=== PATIENT | female | born 1960 | race Caucasian/White ===

== ENCOUNTER 2018-01-06 17:01 | Inpatient (IN) | payer OTHER ==
[~2018-01-06] VITALS: Ht 167.6 cm; Wt 96.2 kg
--- NOTE | 2018-01-06 17:20 | NUR ---
PT TO ED RIGHT LOWER ABDOMINAL PAIN - ON AND OFF SINCE SUNDAY. NAD NOTED, VSS, RESP EVEN AND UNLABORED, PT WAS PUT ON MONITOR, WAITING FOR MD LOVE.
[2018-01-06] MEDS ORDERED: ONDANSETRON HCL/PF 4 MG/2 ML VIAL IVP ONE (18:00)
[2018-01-06] MEDS ORDERED: KETOROLAC TROMETHAMINE INJ 30 MG/ML VIAL IV ONE (18:00)
[2018-01-06] MEDS ORDERED: IV NS 0.9% 1,000 ML BAG IV ONE ×2 (18:00→19:00)
[2018-01-06] MEDS ORDERED: ONDANSETRON HCL/PF 4 MG/2 ML VIAL ONE (18:04)
[2018-01-06] MEDS ORDERED: KETOROLAC TROMETHAMINE 15 MG/ML VIAL ONE (18:04)
[2018-01-06 18:26] LABS: BASOPHILS # (AUTO) 0.4 /CMM (0.0-0.2); EOSINOPHILS % (AUTO) 0.4 % (0.0-6.0); HEMATOCRIT 36 % (33-45); HEMOGLOBIN 12.1 g/dL (11.5-14.8); LYMPHOCYTES % (AUTO) 5.5 % (20.0-44.0); MEAN CORPUSCULAR HEMOGLOBIN 33 PG (26.0-33.0); MEAN CORPUSCULAR HGB CONC 34 g/dl (31.0-36.0); MEAN CORPUSCULAR VOLUME 96 fL (82-100); MONOCYTES % (AUTO) 5.7 % (2.0-12.0); NEUTROPHILS # (AUTO) 31.2 /CMM (1.8-8.9); NEUTROPHILS % (AUTO) 87.4 % (43.0-81.0); PLATELET COUNT (AUTO) 632 /CMM (150-450); RDW COEFFICIENT OF VARIATION 12.5 (11.5-15.0)
[2018-01-06 18:28] LABS: WHITE BLOOD COUNT (AUTO) 35.7 K/uL (4.3-11.0)
[2018-01-06 18:37] LABS: CALCIUM, SERUM 8.5 mg/dL (8.5-10.1); CREATININE 0.9 mg/dL (0.6-1.3); POTASSIUM 3.3 mmol/L (3.5-5.1)
[2018-01-06 18:51] LABS: BILIRUBIN,DIRECT 0.1 mg/dL (0.0-0.2); BILIRUBIN,TOTAL 0.4 mg/dL (0.2-1.0); TOTAL PROTEIN, SERUM 6.6 g/dL (6.4-8.2)
--- NOTE | 2018-01-06 19:16 | NUR ---
xray at bs
[2018-01-06] MEDS ORDERED: PIPERACILLIN /TAZOBACTAM 3.375 G VIAL IV ONE ×2 (19:28→23:46)
[2018-01-06] MEDS ORDERED: PIPERACILLIN /TAZOBACTAM 3.375 G in IV D5W 50 ML IV ONE (19:30)
--- NOTE | 2018-01-06 19:38 | NUR ---
pt unable to give urine sample at this moment.
--- NOTE | 2018-01-06 19:56 | NUR ---
PATIENT ASSIGNED TO MS 206-1 DX ABD PAIN ACCEPTED BY SUSANNA
[2018-01-06] MEDS ORDERED: HYDROCODONE/APAP 5/325MG 1 EACH TABLET PO PRN (20:30)
[2018-01-06] MEDS ORDERED: Z GUARD REMEDY 2 OZ OINT TP PRN (20:30)
[2018-01-06] MEDS ORDERED: MAG HYDROX/AL HYDROX/SIMETH 30 ML UDC PO PRN (20:30)
[2018-01-06] MEDS ORDERED: ACETAMINOPHEN 325 MG TABLET PO PRN (20:30)
[2018-01-06] MEDS ORDERED: MAGNESIUM HYDROXIDE 30 ML UDC PO PRN (20:30)
[2018-01-06] MEDS ORDERED: MORPHINE SULFATE INJ 2 MG/ML DISP.SYRIN IV PRN (20:30)
[2018-01-06] MEDS ORDERED: ONDANSETRON HCL/PF 4 MG/2 ML VIAL IVP PRN (20:30)
[2018-01-06] MEDS: IV NS 0.9% 1,000 ML IV SCH (20:54)
[2018-01-06 21:00] VITALS: BP 117/72
--- NOTE | 2018-01-06 21:00 | NUR ---
MS RN ADMITTING NOTE Patient arrived from ED on stretcher but was able to ambulate to the bathroom and bed with steady gait. Patient is AAOx4, breathing comfortably on RA with no SOB, and no signs of acute distress. Vitals WNL. Patient admitted for diverticulitis with intra-abdominal abscess; currently patient's pain level is only 1/10 in LLQ. Bowel sounds active. Health history and physical assessment has been completed at the bedside. Per orders, NS at 75ml/hr was connected to the IV in the right hand; no signs of leaking or infiltration. Patient has been oriented to room and use of call dominguez. Per orders, patient will remain NPO after midnight; patient verbalizes her understanding of this. Patient has been made comfortable in bed and has no needs at this time. Will continue to monitor.
[2018-01-06 21:01] LABS: BAND % (MANUAL) 2 % (0.0-5.0); LYMPHOCYTES % (MANUAL) 6 % (16-48); MONOCYTES % (MANUAL) 8 % (0-11.0); NEUTROPHILS % (MANUAL) 84 (42-76)
[2018-01-06 23:57] LABS: APPEARANCE,URINE CLEAR (CLEAR); BILIRUBIN,URINE NEGATIVE (NEGATIVE); BLOOD, URINE TRACE Ery/uL (NEGATIVE); COLOR,URINE YELLOW (YELLOW); KETONES,URINE NEGATIVE (NEGATIVE); LEUKOCYTE ESTERASE ,URINE NEGATIVE (NEGATIVE); NITRITE, URINE NEGATIVE (NEGATIVE); PROTEIN,URINE NEGATIVE (NEGATIVE); UGLUCOSE NEGATIVE (NEGATIVE); UROBILINOGEN,URINE 0.2 EU/dL (0.2)
[2018-01-06] MEDS: PIPERACILLIN /TAZOBACTAM 3.375 G in IV D5W 50 ML IV SCH (23:58)
[2018-01-07 00:07] LABS: BACTERIA,URINE None seen /HPF (None Seen); RBC,URINE 0-2 /HPF (0-2); SQUAMOUS EPITHELIAL CELL,UR Few /HPF (None Seen); WBC,URINE 0-2 /HPF (0-3)
[2018-01-07] MEDS ORDERED: PIPERACILLIN /TAZOBACTAM 3.375 G VIAL IV ONE (05:58)
[2018-01-07] MEDS: PIPERACILLIN /TAZOBACTAM 3.375 G in IV D5W 50 ML IV SCH ×4 (06:05→23:05)
[2018-01-07] MEDS: IV NS 0.9% 1,000 ML IV SCH ×2 (06:30→11:38)
--- NOTE | 2018-01-07 07:15 | NUR ---
MS RN NOTE - IV fluids Non-Admin in eMAR Order for NS at 100ml/hr was placed as scheduled IV fluid rather than prn. eMAR prompted for administration of new bag at 06:30. Non-Admin due to current IV fluids still running.
--- NOTE | 2018-01-07 07:17 | NUR ---
MS RN CLOSING NOTE Patient is AAOx4, breathing comfortably on RA with no SOB, and no signs of acute distress. Patient slept fairly well overnight and has remained free of complications. NS at 100ml/hr is running through the right hand IV. Bed is low/locked, two side rails up, and call dominguez within reach. Patient care endorsed to day shift nurse.
[2018-01-07 07:32] LABS: CALCIUM, SERUM 7.9 mg/dL (8.5-10.1); CREATININE 0.8 mg/dL (0.6-1.3); PHOSPHORUS 4.1 mg/dL (2.5-4.9); POTASSIUM 3.7 mmol/L (3.5-5.1); THYROID STIMULATING HORMONE 1.808 uIU/mL (0.358-3.74)
[2018-01-07 07:52] LABS: BASOPHILS # (AUTO) 0.1 /CMM (0.0-0.2); BASOPHILS % (AUTO) 0.3 % (0.0-2.0); EOSINOPHILS % (AUTO) 0.8 % (0.0-6.0); HEMATOCRIT 32 % (33-45); HEMOGLOBIN 10.6 g/dL (11.5-14.8); LYMPHOCYTES # (AUTO) 2.2 /CMM (0.8-4.8); LYMPHOCYTES % (AUTO) 8.6 % (20.0-44.0); MEAN CORPUSCULAR HEMOGLOBIN 33 PG (26.0-33.0); MEAN CORPUSCULAR HGB CONC 34 g/dl (31.0-36.0); MEAN CORPUSCULAR VOLUME 97 fL (82-100); MONOCYTES # (AUTO) 2.6 /CMM (0.1-1.30); MONOCYTES % (AUTO) 10.2 % (2.0-12.0); NEUTROPHILS # (AUTO) 19.9 /CMM (1.8-8.9); NEUTROPHILS % (AUTO) 80.1 % (43.0-81.0); PLATELET COUNT (AUTO) 641 /CMM (150-450); RDW COEFFICIENT OF VARIATION 12.5 (11.5-15.0); RED BLOOD CELL COUNT(AUTO) 3.27 MIL/uL (4.0-5.2)
[2018-01-07 08:00] VITALS: BP 123/73
[2018-01-07] MEDS: PANTOPRAZOLE 40 MG VIAL IV SCH (09:31)
[2018-01-07 10:07] LABS: BAND % (MANUAL) 1 % (0.0-5.0); LYMPHOCYTES % (MANUAL) 7 % (16-48); NEUTROPHILS % (MANUAL) 88 (42-76)
[2018-01-07 10:09] LABS: BASOPHILS % (MANUAL) 0 % (0.0-2.0); EOSINOPHILS % (MANUAL) 0 % (0-4); MONOCYTES % (MANUAL) 4 % (0-11.0)
[2018-01-07 14:07] LABS: INR 1.05 (0.87-1.13)
--- NOTE | 2018-01-07 14:40 | NUR ---
PER RADIOLOGIST DR. MCGRATH, POCKET OF FLUID FOR PERC ABSCESS DRAINAGE TOO SMALL FOR PROCEDURE. DR. MCGRATH HAS SPOKEN TO ORDERING DOCTOR ABOUT IT.
[2018-01-07 16:00] VITALS: BP 135/97
--- NOTE | 2018-01-07 19:20 | NUR ---
MS RN OPENING NOTES: RECEIVED PT ON ROOM AIR AND IS RESTING IN BED COMFORTABLY. PT IS A/OX3. NO S/S OF DISTRESS NOTED. PT HAS R HAND #20G AND IS BEING INFUSED WITH IV NS 100ML/HR. PT KEPT NPO. CALL LIGHT WITHIN PT'S REACH. BED KEPT IN LOW, LOCKED POSITION, AND SIDE RAILS X 2UP. WILL CONTINUE TO MONITOR PT.
--- NOTE | 2018-01-07 19:57 | NUR ---
MSRN CLOSING. PT RESTING WITHOUT RESP DISTRESS PAIN OR DISCOMFORT. IVC WITH IVF PER RX. ALL DAY NURSE DUTIES ATTENDED TO AND PT IS WITHOUT CONCERN OR COMPLAINT. ENDORSE TO NIGHT NURSE FOR NEVAEH
[2018-01-07 20:42] VITALS: BP 126/71
[2018-01-08] MEDS: IV NS 0.9% 1,000 ML IV SCH ×3 (01:43→23:07)
[2018-01-08] MEDS: PIPERACILLIN /TAZOBACTAM 3.375 G in IV D5W 50 ML IV SCH ×4 (05:01→23:07)
--- NOTE | 2018-01-08 06:46 | NUR ---
MS RN CLOSING NOTES: ALL NEEDS WERE ATTENDED AND ANTICIPATED FOR. PT KEPT CLEAN, DRY, AND COMFORTABLE. PT HAS BEEN NPO FOR POSSIBLE ABSCESS FLUID COLLECTION DRAINAGE ALONG SIGMOID. PT HAS IV AND IS PATENT AND INTACT AND IS BEING INFUSED WITH IV NS AT 100ML/HR. CALL LIGHT WITHIN PT'S REACH. BED KEPT IN LOW, LOCKED POSITION, AND SIDE RAILS X 2UP . WILL ENDORSE TO AM NURSE FOR NEVAEH.
[2018-01-08 08:00] VITALS: BP 139/88
--- NOTE | 2018-01-08 08:00 | NUR ---
MS RN AM NOTES: RECEIVED PT ON ROOM AIR AND IS RESTING IN BED COMFORTABLY. PT IS A/OX3. NO S/S OF DISTRESS NOTED. PT HAS R HAND #20G AND IS BEING INFUSED WITH IV NS 100ML/HR. PT KEPT NPO. CALL LIGHT WITHIN PT'S REACH. BED KEPT IN LOW, LOCKED POSITION, AND SIDE RAILS X 2UP. WILL CONTINUE TO MONITOR PT.
[2018-01-08] MEDS: PANTOPRAZOLE 40 MG VIAL IV SCH (08:32)
--- NOTE | 2018-01-08 12:31 | NUR ---
CLARIFIED TO OPAL CHUNG IF THE IR ABSCESS DRAIN PROCEDURE WILL BE DONE TODAY AND OPAL CHUNG STATED NOT TODAY-INFORMED PT AND CLARIFIED TO OPAL MORALES IF THE PT CAN EAT SINCE THE PT HASN'T EATEN FOR 4 DAYS,OPAL MORALES STATED TO WAIT FOR HER TO CHECK ON THE PT FIRST
[2018-01-08 16:00] VITALS: BP 144/74
[2018-01-08] MEDS ORDERED: DIATR MEGLU/DIATRIZOATE SODIUM 30 ML BOTTLE (GASTROGRAPHIN) ONE (18:45)
--- NOTE | 2018-01-08 18:51 | NUR ---
CLARIFIED WITH OPAL MORALES OF PT DRINKING PO CONTRAST DURING THE CT ABD/PELVIS PROCEDURE SINCE THE PT IS NPO.OPAL MORALES STATED THAT ITS OK FOR PT TO DRINK THE PO CONTRAST FOR THE PROCEDURE.
--- NOTE | 2018-01-08 19:00 | NUR ---
PT RESTING IN BED WITH ONGOING IVF OF NS AT 100 ML/HR INFUSING WELL.DENIES PAIN OR DISTRESS.AWAITING FOR THE CT OF ABD/PELVIS WITH CONTRAST -CONSENT SIGNED.CALL LIGHT PLACED WITHIN REACH.
--- NOTE | 2018-01-08 19:36 | NUR ---
MS RN OPENING NOTES: RECEIVED PT ON ROOM AIR AND IS TOLERATING WELL. PT STILL NPO. PT IS A/OX4 BUT CLIP WRAPPER JUST GAVE HER CONTRAST TO DRINK FOR CT FOR AB/PELVIS. PT HAS IV ON R HAND #20G AND IS BEING INFUSED WITH IV NS AT 100ML/HR. CALL LIGHT WITHIN PT'S REACH. BED KEPT IN LOW, LOCKED POSITION, AND SIDE RAILS X 2UP. WILL CONTINUE TO MONITOR PT.
[2018-01-08 20:00] VITALS: BP 152/80
[2018-01-08] MEDS ORDERED: IOHEXOL-300 100 ML VIAL IV ONE (21:21)
[2018-01-08] MEDS ORDERED: CT SWABBABLE VALVE TRANS SET 1 EA INFUS.SET MC ONE (21:21)
[2018-01-08] MEDS ORDERED: IV NS 0.9% 250 ML IV ONE (21:21)
--- NOTE | 2018-01-08 21:30 | NUR ---
MS RN NOTES: PT WENT DOWN FOR CT AB/PELVIS WITH 2 RADIOLOGY TECHS. ESCORTED WITH WHEELCHAIR.
[2018-01-09] MEDS: PIPERACILLIN /TAZOBACTAM 3.375 G in IV D5W 50 ML IV SCH ×4 (05:05→23:52)
--- NOTE | 2018-01-09 06:56 | NUR ---
MS RN CLOSING NOTES: ALL NEEDS WERE ATTENDED AND ANTICIPATED FOR. PT HAS BEEN NPO SINCE SUNDAY. PT HAS IV ON R HAND #20G AND IS BEING INFUSED WITH IV NS AT 100ML/HR. CALL LIGHT WITHIN PT'S REACH. BED KEPT IN LOW, LOCKED POSITION, AND SIDE RAILS X 2UP. WILL ENDORSE TO AM NURSE FOR NEVAEH.
[2018-01-09 07:37] LABS: CALCIUM, SERUM 7.8 mg/dL (8.5-10.1); CREATININE 0.7 mg/dL (0.6-1.3); MAGNESIUM 1.7 mg/dL (1.8-2.4); PHOSPHORUS 3.5 mg/dL (2.5-4.9); POTASSIUM 3.4 mmol/L (3.5-5.1)
[2018-01-09 07:41] LABS: BASOPHILS % (AUTO) 0.2 % (0.0-2.0); EOSINOPHILS % (AUTO) 1.4 % (0.0-6.0); HEMATOCRIT 32 % (33-45); HEMOGLOBIN 10.9 g/dL (11.5-14.8); LYMPHOCYTES # (AUTO) 2.3 /CMM (0.8-4.8); MEAN CORPUSCULAR HEMOGLOBIN 32 PG (26.0-33.0); MEAN CORPUSCULAR HGB CONC 34 g/dl (31.0-36.0); MEAN CORPUSCULAR VOLUME 96 fL (82-100); MONOCYTES # (AUTO) 1.9 /CMM (0.1-1.30); NEUTROPHILS # (AUTO) 13.1 /CMM (1.8-8.9); NEUTROPHILS % (AUTO) 74.4 % (43.0-81.0); PLATELET COUNT (AUTO) 674 /CMM (150-450); RDW COEFFICIENT OF VARIATION 12.7 (11.5-15.0); RED BLOOD CELL COUNT(AUTO) 3.39 MIL/uL (4.0-5.2); WHITE BLOOD COUNT (AUTO) 17.5 K/uL (4.3-11.0)
[2018-01-09 08:00] VITALS: BP 128/79
[2018-01-09] MEDS: IV NS 0.9% 1,000 ML IV SCH ×2 (08:35→19:01)
[2018-01-09] MEDS: PANTOPRAZOLE 40 MG VIAL IV SCH (08:35)
[2018-01-09] MEDS: Magnesium 1GM/D5W 100ML PREMIX 100 ML IV SCH ×2 (09:36→10:58)
[2018-01-09] MEDS ORDERED: POTASSIUM CHLORIDE 20 MEQ TAB.PRT.SR PO SCH (10:30)
[2018-01-09] MEDS: POTASSIUM CL. PREMIX PERIPHER. 50 ML IV SCH ×2 (13:03→15:18)
[2018-01-09 16:00] VITALS: BP 163/97
--- NOTE | 2018-01-09 17:28 | NUR ---
MS RN NOTES PATIENT SEEN AND EXAMINED BY DR. MENDENHALL FOR GI CONSULT. GAVE OK TO START PATIENT ON CLEAR LIQUID DIET. DR. MENDENHALL NOTIFIED ANDREW CONNELLY, OPAL AND BOTH AGREED TO START PATIENT ON CLEAR LIQUID DIET. MD AWARE. PATIENT MADE AWARE AND VERBALIZED UNDERSTANDING. ORDER NOTED AND CARRIED OUT. FNS AWARE. WILL CONTINUE TO MONITOR
--- NOTE | 2018-01-09 19:25 | NUR ---
MS RN NOTES PATIENT RESTING INSIDE ROOM. AWAKE, ALERT AND ORIENTED. VERBALLY RESPONSIVE AND RESPONDS TO VERBAL AND TACTILE STIMULI. BREATHING EVEN AND UNLABORED. NO SOB OR ACUTE DISTRESS NOTED. NO CHANGES IN LOC NOTED. IV INTACT AND PATENT. ENDORSED TO INCOMING SHIFT FOR NEVAEH. BED LOCKED AND IN LOW POSITION. BILATERAL UPPER SIDE RAILS UP AND LOCKED. CALL LIGHT WITHIN EASY REACH
--- NOTE | 2018-01-09 19:30 | NUR ---
MS RN NOTES RECEIVED RESTING COMFORTABLY ON BED,A/O X4,BREATHING NORMAL,HIRA ABDOMINAL PAIN.ON CLEAR LIQUID DIET TOLERATED WELL.PRESENT IVF NS AT 100ML/HR RATE IN PROGRESS VIA LEFT HAND,SITE PATENT.WILL CONTINUE TO MONITOR STATUS,CALL LIGHT IN REACH,NEEDS ANTICIPATED.
[2018-01-09 20:00] VITALS: BP 147/81
[2018-01-10] MEDS: IV NS 0.9% 1,000 ML IV SCH ×2 (05:39→15:52)
[2018-01-10] MEDS: PIPERACILLIN /TAZOBACTAM 3.375 G in IV D5W 50 ML IV SCH ×4 (05:40→23:25)
--- NOTE | 2018-01-10 06:55 | NUR ---
MS RN NOTES TOLERATED CLEAR LIQUID DIET.NO N/V/D NOTED.DENIES ABDOMINAL PAIN.CALL LIGHT IN REACH,NEEDS ATTENDED.WILL ENDORSE TO DAY NURSE FOR NEVAEH.
[2018-01-10 07:08] LABS: BASOPHILS # (AUTO) 0.1 /CMM (0.0-0.2); BASOPHILS % (AUTO) 0.8 % (0.0-2.0); EOSINOPHILS % (AUTO) 2.5 % (0.0-6.0); HEMATOCRIT 36 % (33-45); HEMOGLOBIN 11.3 g/dL (11.5-14.8); LYMPHOCYTES # (AUTO) 2.4 /CMM (0.8-4.8); LYMPHOCYTES % (AUTO) 22.1 % (20.0-44.0); MEAN CORPUSCULAR HEMOGLOBIN 31 PG (26.0-33.0); MEAN CORPUSCULAR HGB CONC 32 g/dl (31.0-36.0); MEAN CORPUSCULAR VOLUME 98 fL (82-100); MONOCYTES # (AUTO) 1.5 /CMM (0.1-1.30); MONOCYTES % (AUTO) 14.5 % (2.0-12.0); NEUTROPHILS # (AUTO) 6.4 /CMM (1.8-8.9); NEUTROPHILS % (AUTO) 60.1 % (43.0-81.0); PLATELET COUNT (AUTO) 655 /CMM (150-450); RDW COEFFICIENT OF VARIATION 13.4 (11.5-15.0); RED BLOOD CELL COUNT(AUTO) 3.62 MIL/uL (4.0-5.2); WHITE BLOOD COUNT (AUTO) 10.6 K/uL (4.3-11.0)
--- NOTE | 2018-01-10 07:30 | NUR ---
MS RN OPENING NOTES RECEIVED PATIENT IN BED AWAKE AND IN NO ACUTE SIGNS OF DISTRESS. A/O X4. ABLE TO MAKE NEEDS KNOWN, NO C/O PAIN OR DISCOMFORTS VOICED AT THIS TIME. ON ROOM AIR, BREATHING EVEN AND UNLABORED. IVF OF NS @ 100ML/HR INFUSING TO LEFT HAND, NO S/S OF INFILTRATIONS NOTED. CALL LIGHT IN REACH. WILL CONTINUE TO MONITOR PT. ACCORDINGLY.
[2018-01-10 07:39] LABS: CALCIUM, SERUM 8.1 mg/dL (8.5-10.1); CREATININE 0.5 mg/dL (0.6-1.3); MAGNESIUM 1.8 mg/dL (1.8-2.4); PHOSPHORUS 3.1 mg/dL (2.5-4.9)
[2018-01-10 08:00] VITALS: BP 149/89
[2018-01-10] MEDS ORDERED: POTASSIUM CHLORIDE 20 MEQ TAB.PRT.SR PO ONE (09:00)
[2018-01-10] MEDS: PANTOPRAZOLE 40 MG VIAL IV SCH (09:27)
--- NOTE | 2018-01-10 10:01 | NUR ---
RN NOTES PATIENT NOTED WITH LOW POTASSIUM LEVEL 3.0, DR SWEENEY AWARE AND ORDERED K-DUR 40 MEQ X1. ORDERED CARRIED OUT. WILL CONTINUE TO MONITOR
[2018-01-10 16:00] VITALS: BP 148/89
--- NOTE | 2018-01-10 18:38 | NUR ---
MS RN CLOSING NOTES PATIENT AWAKE IN BED IN NO ACUTE SIGNS OF DISTRESS.HOB ELEVATED. A/O X4. ABLE TO MAKE NEEDS KNOWN. PLEASANT, AMBULATORY AND COMPLIANT WITH MEDS AND CARE. NO C/O PAIN ALL THROUGHOUT THE DAY. ON ROOM AIR, BREATHING EVEN AND UNLABORED. IV ACCESS ON LEFT HAND INTACT AND PATENT, IVF OF NS @ 100ML/HR INFUSING WELL, NO S/S OF INFILTRATIONS NOTED. BED IN LOW/LOCKED POSITION. CALL LIGHT IN REACH. ALL NEEDS AND CARE ATTENDED WELL. WILL ENDORSE TO RECYCLING PROGRAM MANAGER NURSE FOR NEVAEH.
--- NOTE | 2018-01-10 19:30 | NUR ---
RN NOTES RECEIVED PT. AWAKE ON BED, A/OX4, AMBULATORY, DENIES PAIN, IV FLUID NS RUNNING @ 100ML/HR, CALL LIGHT WITHIN REACH, BED IN LOCKED POSITION, SIDERAILSUPX2, CONTINUE TO MONITOR
[2018-01-10 20:00] VITALS: BP_SYST 148; BP_DIAS 83; BP_DIAS 88
[2018-01-11] MEDS: IV NS 0.9% 1,000 ML IV SCH (02:46)
[2018-01-11] MEDS: PIPERACILLIN /TAZOBACTAM 3.375 G in IV D5W 50 ML IV SCH ×4 (05:50→23:42)
--- NOTE | 2018-01-11 06:30 | NUR ---
RN NOTES SLEEPING BUT AROUSABLE, DENIES PAIN, NO SOB, MORNING CARE RENDERED, SIDERILAUPX2, PT NEEDS ATTENDED
--- NOTE | 2018-01-11 07:07 | NUR ---
MS RN OPENING NOTES RECEIVED PATIENT AWAKE IN BED IN ACUTE SIGNS OF DISTRESS. A/O X4. ABLE TO MAKE NEEDS KNOWN, DENIES PAIN OR ANY DISCOMFORTS VOICED AT THIS TIME. ON ROOM AIR, BREATHING EVEN AND UNLABORED. IVF OF NS @ 100ML/HR INFUSING WELL TO LEFT HAND, NO S/S OF INFILTRATIONS NOTED. CALL LIGHT IN REACH. WILL CONTINUE TO MONITOR PT.
[2018-01-11 07:13] LABS: BASOPHILS # (AUTO) 0.1 /CMM (0.0-0.2); BASOPHILS % (AUTO) 0.6 % (0.0-2.0); EOSINOPHILS % (AUTO) 3.1 % (0.0-6.0); HEMATOCRIT 37 % (33-45); HEMOGLOBIN 11.9 g/dL (11.5-14.8); LYMPHOCYTES # (AUTO) 2.7 /CMM (0.8-4.8); LYMPHOCYTES % (AUTO) 25.2 % (20.0-44.0); MEAN CORPUSCULAR HEMOGLOBIN 32 PG (26.0-33.0); MEAN CORPUSCULAR HGB CONC 32 g/dl (31.0-36.0); MEAN CORPUSCULAR VOLUME 98 fL (82-100); MONOCYTES # (AUTO) 1.3 /CMM (0.1-1.30); MONOCYTES % (AUTO) 11.8 % (2.0-12.0); NEUTROPHILS # (AUTO) 6.4 /CMM (1.8-8.9); NEUTROPHILS % (AUTO) 59.3 % (43.0-81.0); PLATELET COUNT (AUTO) 717 /CMM (150-450); RDW COEFFICIENT OF VARIATION 13.4 (11.5-15.0); RED BLOOD CELL COUNT(AUTO) 3.79 MIL/uL (4.0-5.2); WHITE BLOOD COUNT (AUTO) 10.8 K/uL (4.3-11.0)
[2018-01-11 07:17] LABS: CALCIUM, SERUM 8.2 mg/dL (8.5-10.1); CREATININE 0.6 mg/dL (0.6-1.3); MAGNESIUM 1.7 mg/dL (1.8-2.4); POTASSIUM 3.2 mmol/L (3.5-5.1)
[2018-01-11 08:00] VITALS: BP 147/87
[2018-01-11] MEDS: PANTOPRAZOLE 40 MG VIAL IV SCH (08:37)
--- NOTE | 2018-01-11 09:55 | NUR ---
RN NOTES PATIENT SEEN BY DR SWEENEY THIS MORNING. REPORTED RESULTS OF LOW POTASSIUM 3.2 AND MG 1.7 WITH ORDER TO ADMINISTER KDUR 40MEQ PO X1 AND MG 1 [id number] IVPB X1. DR SWEENEY ALSO AGREED TO CONTINUE CLEAR LIQUIDS DIET WITH 2GM NA. SHE ALSO SAID TO CONTINUE ON IVF AND IV ANTIBIOTICS FOR FEW MORE DAYS. SHE SAID THAT SHE WILL LET US KNOW WHEN CT OF ABDOMEN WILL BE DONE. WILL CARRY OUT ORDERS.
[2018-01-11] MEDS ORDERED: Magnesium 1GM/D5W 100ML PREMIX PIGGYBACK IV ONE (10:00)
[2018-01-11] MEDS ORDERED: POTASSIUM CHLORIDE 20 MEQ TAB.PRT.SR PO ONE (10:30)
[2018-01-11] MEDS: IV NS 0.9% 1,000 ML IV PRN ×2 (15:34→23:42)
[2018-01-11 16:00] VITALS: BP 163/92
--- NOTE | 2018-01-11 18:34 | NUR ---
MS RN CLOSING NOTES PATIENT IN BED AWAKE AND WATCHING TV. A/O X4. ABLE TO MAKE NEEDS AND CONCERNS KNOWN, NO C/O PAIN ALL THROUGHOUT THE DAY. PT IS AMBULATORY AND COMPLIANT WITH MEDS AND CARE. ON ROOM AIR, TOLERATING WELL WITH NO ACUTE DISTRESS NOTED. PATIENT TOLERATED FULL LIQUID DIET AT DINNER TIME WITH NO C/O N, V AND ABDOMINAL PAIN. IV ACCESS ON LEFT HAND INTACT AND PATENT, IVF OF NS @ 100ML/HR INFUSING WELL, NO S/S OF INFILTRATIONS NOTED. BED IN LOW/LOCKED POSITION. CALL LIGHT IN REACH. ALL NEEDS AND CARE ATTENDED WELL. WILL ENDORSE TO MACHINE ASSEMBLER FOR PULLER OVER NURSE FOR NEVAEH.
--- NOTE | 2018-01-11 19:40 | NUR ---
MS RN NOTE RECEIVED PATIENT FROM DAY SHIFT, PATIENT IS ALERT AND ORIENTEDX4, DENIES RESPIRATORY DISTRESS OR PAIN AT THIS TIME. IV ON LEFT HAND IS PATENT AND INTACT, FLUID IS RUNNING. SRX2, BED IN LOW POSITION, CALL LIGHT WITHIN REACH, WILL CONTINUE TO MONITOR PATIENT.
[2018-01-11 20:00] VITALS: BP 157/96
[2018-01-12] MEDS: PIPERACILLIN /TAZOBACTAM 3.375 G in IV D5W 50 ML IV SCH ×2 (05:49→11:17)
[2018-01-12 05:50] LABS: BASOPHILS # (AUTO) 0.1 /CMM (0.0-0.2); EOSINOPHILS % (AUTO) 3.2 % (0.0-6.0); HEMATOCRIT 37 % (33-45); LYMPHOCYTES % (AUTO) 29.7 % (20.0-44.0); MEAN CORPUSCULAR HEMOGLOBIN 32 PG (26.0-33.0); MEAN CORPUSCULAR HGB CONC 33 g/dl (31.0-36.0); MEAN CORPUSCULAR VOLUME 99 fL (82-100); MONOCYTES # (AUTO) 1.3 /CMM (0.1-1.30); MONOCYTES % (AUTO) 12.7 % (2.0-12.0); NEUTROPHILS # (AUTO) 5.4 /CMM (1.8-8.9); NEUTROPHILS % (AUTO) 53.4 % (43.0-81.0); PLATELET COUNT (AUTO) 692 /CMM (150-450); RDW COEFFICIENT OF VARIATION 13.7 (11.5-15.0); RED BLOOD CELL COUNT(AUTO) 3.71 MIL/uL (4.0-5.2); WHITE BLOOD COUNT (AUTO) 10.1 K/uL (4.3-11.0)
[2018-01-12 06:09] LABS: CALCIUM, SERUM 8.4 mg/dL (8.5-10.1); CREATININE 0.8 mg/dL (0.6-1.3); MAGNESIUM 1.8 mg/dL (1.8-2.4); PHOSPHORUS 3.4 mg/dL (2.5-4.9); POTASSIUM 3.6 mmol/L (3.5-5.1)
--- NOTE | 2018-01-12 07:13 | NUR ---
MS RN NOTE PATIENT IS RESTING IN BED COMFORTABLY, NO ACUTE DISTRESS OR EVENT NOTED THROUGHOUT THE SHIFT. ENDORSED TO DAY SHIFT NURSE FOR NEVAEH.
--- NOTE | 2018-01-12 07:31 | NUR ---
MS RN OPENING NOTES RECEIVED PT LAYING IN BED, RESTING COMFORTABLY. PT IS AWAKE, A/O X4, AFEBRILE. RESPIRATIONS ARE EVEN AND UNLABORED, NOT IN ANY ACUTE DISTRESS NOTED. PT DENIES ANY ABDOMINAL PAIN AT THIS TIME, NO C/O N/V, SOB. IV ACCESS TO LEFT HAND INTACT, NO INFILTRATION NOTED. DRESSING KEPT CLEAN AND DRY. IV FLUIDS INFUSING AT 100ML/HR AND TOLERATING WELL. SAFETY MEASURES ARE IN PLACE. INSTRUCTED PT TO USE CALL LIGHT WHEN ASSISTANCE IS NEEDED, CALL LIGHT IS LEFT WITHIN REACH. WILL CONTINUE TO MONITOR THROUGHOUT SHIFT FOR CONTINUITY OF CARE.
[2018-01-12 08:00] VITALS: BP 134/91
[2018-01-12] MEDS: PANTOPRAZOLE 40 MG VIAL IV SCH (08:21)
--- NOTE | 2018-01-12 11:00 | NUR ---
PT SEEN AND EXAMINED BY DR. SWEENEY WITH ORDERS TO BE DISCHARGED HOME.
[2018-01-12] MEDS ORDERED: CIPR500T5 PO (11:58)
[2018-01-12] MEDS ORDERED: METR500T PO (11:59)
[2018-01-12] MEDS ORDERED: HYDR-552 PO (11:59)
--- NOTE | 2018-01-12 13:13 | NUR ---
PT SEEN AND EXAMINED BY DR. ZA Jones/ THE "OKAY" TO GO HOME.
--- NOTE | 2018-01-12 15:00 | NUR ---
MS PLANNING ASSISTANT NOTE PT DISCHARGED TO HOME IN STABLE CONDITION ACCOMPANIED BY FRIEND MONICA VIA WHEELCHAIR. PT IS A/O X4, AFEBRILE. RESPIRATIONS ARE EVEN AND UNLABORED, NOT IN ANY ACUTE DISTRESS NOTED. PT DENIES ANY PAIN AT THIS TIME, NO C/O SOB, N/V. ABDOMEN IS SOFT AND NONDISTENDED. BOWEL SOUNDS ARE PRESENT IN ALL 4 QUADRANTS UPON AUSCULTATION. DENIES ANY BLADDER DISCOMFORT. IV ACCESS REMOVED, APPLIED PRESSURE AND TOLERATED WELL. ID BAND REMOVED. EXPLAINED DISCHARGE PAPERWORK TO PT WITH WRITTEN AND VERBAL AGREEMENT. PT ACCOMPANIED BY TO PERSONAL VEHICLE BY 1 STAFF, ALL BELONGINGS TAKEN WITH PT. PT LEFT IN STABLE CONDITION.
== END 2018-01-12 15:00 | disposition home or self-care (01) | DRG 392 ==
LOC: ER 17:10 → MEDSG2 20:08
PROVIDERS: ADMIT Registered Nurse; ATTEND Registered Nurse
DX: K57.20 Diverticulitis of large intestine with perforation and abscess without bleeding (principal); E87.1 Hypo-osmolality and hyponatremia; E44.0 Moderate protein-calorie malnutrition; D72.829 Elevated white blood cell count, unspecified; E87.6 Hypokalemia; E88.09 Other disorders of plasma-protein metabolism, not elsewhere classified; I10 Essential (primary) hypertension; Z90.710 Acquired absence of both cervix and uterus; Z90.81 Acquired absence of spleen; D47.3 Essential (hemorrhagic) thrombocythemia; R74.0 Nonspecific elevation of levels of transaminase and lactic acid dehydrogenase [LDH]; E66.9 Obesity, unspecified; Z68.34 Body mass index [BMI] 34.0-34.9, adult; K57.30 Diverticulosis of large intestine without perforation or abscess without bleeding
CPT/HCPCS: 36415; 71045-TC; 72192-TC; 80048-TC; 80061-TC; 80074; 80076-TC; 81000-TC; 83605-TC; 83690-TC; 83735-TC; 84100-TC; 84443-TC; 85025-TC; 85610-TC; 85652-TC; 85730-TC; 86140-TC; 87040-TC; 87081-TC; 87086-TC; A4606; C9113; J1885; J2405; J2543; J3475; J3480; J7030; J7050; J7060; Q9963; Q9967; Z7610

== ENCOUNTER 2018-07-20 06:58 | Emergency (ER) | payer BC, OTHER ==
[~2018-07-20] VITALS: Ht 167.6 cm; Wt 90.7 kg
[~2018-07-20 06:58] MED LIST: CIPR500T5 PO; HYDR-4384 PO; METR500T PO
--- NOTE | 2018-07-20 08:14 | NUR ---
PT REC;D TO ER C/O PAIN AND IRRATATION LEFT EYE FOR ONE DAY VSS
[2018-07-20 08:25] VITALS: BP 188/106
== END 2018-07-20 08:28 | disposition home or self-care (01) ==
LOC: ER 06:59
DX: H00.012 Hordeolum externum right lower eyelid (principal); I10 Essential (primary) hypertension; Z90.89 Acquired absence of other organs; Z90.710 Acquired absence of both cervix and uterus; Z98.890 Other specified postprocedural states; Z79.899 Other long term (current) drug therapy

== ENCOUNTER 2019-10-03 18:45 | Inpatient (IN) | payer BC, OTHER ==
[~2019-10-03] VITALS: Ht 170.2 cm; Wt 110.2 kg
[2019-10-03] MEDS: POTASSIUM CHLORIDE 10 MEQ/50 ML PREMIXED IVPB FOR PERIPHERAL LINE IV SCH ×2 (05:00→06:20)
[2019-10-03] MEDS ORDERED: IV NS 0.9% 1,000 ML IV ONE (19:11)
[2019-10-03] MEDS ORDERED: KETOROLAC TROMETHAMINE 15 MG/ML VIAL ONE (19:25)
[2019-10-03] MEDS ORDERED: ACETAMINOPHEN ES 500 MG TABLET ONE (19:25)
--- NOTE | 2019-10-03 19:29 | NUR ---
BIBS TO ER BED 7. AAOX4. NOT IN RESP DISTRESS. AMBULATORY. CAME IN FOR MIN BACK PAIN EXTENDING DOWN TO LOWER BACK. PT REPORTS THAT SHE HAD CHILLS. REPORTS NAUSEA. PT IS PLACED ON MONITOR. MD WAS AT BEDSIDE FOR EVAL.
[2019-10-03] MEDS ORDERED: ACETAMINOPHEN ES 500 MG TABLET PO ONE (19:30)
[2019-10-03] MEDS ORDERED: KETOROLAC TROMETHAMINE INJ 30 MG/ML VIAL IV ONE (19:30)
[2019-10-03 19:32] LABS: BASOPHILS % (AUTO) 0.3 % (0.0-2.0); EOSINOPHILS % (AUTO) 0.2 % (0.0-6.0); HEMATOCRIT 43 % (33-45); HEMOGLOBIN 14.3 g/dL (11.5-14.8); LYMPHOCYTES # (AUTO) 0.4 /CMM (0.8-4.8); LYMPHOCYTES % (AUTO) 2.1 % (20.0-44.0); MEAN CORPUSCULAR HGB CONC 33 g/dl (31.0-36.0); MEAN CORPUSCULAR VOLUME 97 fL (82-100); MONOCYTES # (AUTO) 0.6 /CMM (0.1-1.30); NEUTROPHILS # (AUTO) 17.1 /CMM (1.8-8.9); NEUTROPHILS % (AUTO) 94.4 % (43.0-81.0); PLATELET COUNT (AUTO) 306 /CMM (150-450); WHITE BLOOD COUNT (AUTO) 18.1 K/uL (4.3-11.0)
[2019-10-03 19:43] LABS: CALCIUM, SERUM 8.6 mg/dL (8.5-10.1); CARBON DIOXIDE 26 mmol/L (21-32); CHLORIDE 101 mmol/L (98-107); CREATININE 0.7 mg/dL (0.6-1.3); GLUCOSE 120 mg/dL (74-106); POTASSIUM 2.9 mmol/L (3.5-5.1); SODIUM SERUM 136 mmol/L (136-145); UREA NITROGEN, BLOOD 11 mg/dL (7-18)
[2019-10-03 19:57] LABS: ALANINE AMINOTRANSFERASE 273 U/L (12-78); ALBUMIN 3.1 g/dL (3.4-5.0); ALKALINE PHOSPHATASE 334 U/L (46-116); ASPARTATE AMINOTRANSFERASE 168 U/L (15-37); B-TYPE NATRIURETIC PEPTIDE 63 PG/ML (0-125); BILIRUBIN,TOTAL 2.8 mg/dL (0.2-1.0); TOTAL PROTEIN, SERUM 7.3 g/dL (6.4-8.2)
[2019-10-03] MEDS ORDERED: IV NS 0.9% 250 ML IV ONE (20:03)
[2019-10-03] MEDS ORDERED: IOHEXOL-300 100 ML VIAL IV ONE (20:03)
[2019-10-03] MEDS ORDERED: CT SWABBABLE VALVE TRANS SET 1 EA INFUS.SET MC ONE (20:03)
--- NOTE | 2019-10-03 20:10 | NUR ---
PT IS IN CT ON [facility]
[2019-10-03 20:34] LABS: BILIRUBIN,URINE SMALL (NEGATIVE); BLOOD, URINE Trace-lysed Ery/uL (NEGATIVE); KETONES,URINE 15 (NEGATIVE); LEUKOCYTE ESTERASE ,URINE Negative (NEGATIVE); NITRITE, URINE Negative (NEGATIVE); PROTEIN,URINE Trace mg/dl (NEGATIVE); UGLUCOSE Negative (NEGATIVE)
[2019-10-03] MEDS ORDERED: PIPERACILLIN /TAZOBACTAM 3.375 G in IV D5W 50 ML IV ONE (21:00)
[2019-10-03] MEDS ORDERED: VANCOMYCIN 1 GM in IV D5W 250 ML IV ONE (21:00)
[2019-10-03 21:01] LABS: APPEARANCE,URINE SLIGHTLY HAZY (CLEAR); COLOR,URINE DARK YELLOW (YELLOW)
[2019-10-03 21:02] LABS: BACTERIA,URINE Many /HPF (None Seen); SQUAMOUS EPITHELIAL CELL,UR Moderate /HPF (None Seen); WBC,URINE 0-2 /HPF (0-3)
[2019-10-03] MEDS ORDERED: PIPERACILLIN /TAZOBACTAM 3.375 G VIAL IV ONE (21:03)
[2019-10-03] MEDS ORDERED: VANCOMYCIN 1 GM VIAL ONE (21:03)
--- NOTE | 2019-10-03 21:13 | NUR ---
US AT BEDSIDE.
[2019-10-03] MEDS ORDERED: IV 1/2NS 1000 ML 1,000 ML IV PRN (21:16)
[2019-10-03 21:18] LABS: CREATINE KINASE, TOTAL 56 U/L (26-192); FERRITIN 414 ng/mL (8-388)
[2019-10-03 21:19] LABS: D-DIMER 2.94 mg/L(FEU (0.17-0.50)
[2019-10-03] MEDS ORDERED: HYDROCODONE/APAP 5/325MG 1 EACH TABLET PO PRN (21:30)
[2019-10-03] MEDS ORDERED: MORPHINE SULFATE INJ 2 MG/ML DISP.SYRIN IV PRN (21:30)
[2019-10-03] MEDS ORDERED: ONDANSETRON HCL/PF 4 MG/2 ML VIAL IVP PRN (21:30)
[2019-10-03] MEDS ORDERED: IV NS 0.9% 1,000 ML IV SCH (21:30)
[2019-10-03] MEDS ORDERED: MAG HYDROX/AL HYDROX/SIMETH 30 ML UDC PO PRN (21:30)
[2019-10-03] MEDS ORDERED: MAGNESIUM HYDROXIDE 30 ML UDC PO PRN (21:30)
[2019-10-03] MEDS ORDERED: Z GUARD REMEDY 2 OZ OINT TP PRN (21:30)
--- NOTE | 2019-10-03 22:53 | NUR ---
REPORT GIVEN TO RENUKA DOE FOR NEVAEH.
--- NOTE | 2019-10-03 23:32 | NUR ---
PT TRANSPORTED TO UNIT ON GURNEY WITH EMT AND RN AT BEDSIDE. NAD NOTED DURING TRANSPORT. PT AMBULATED FROM GURNEY TO BED W/O ASSIST ON STEADY GAIT
--- NOTE | 2019-10-03 23:33 | NUR ---
RN NOTE PT ARRIVED TO UNIT.PT A/O X 4 AMBULATORY, DENIES ANY PAIN AT THIS TIME, PT ON RA SATURATING AT 97%, VS STABLE. IV TO LT AC PATENT, INTACT, FLUSHING WELL. PT AWARE IS NPO PER MD ORDERS. BED LOCKED AND IN LOWEST POSITION, SIDE RAILS UP X 2, CALL LIGHT WITHIN REACH WILL CONT. TO MONITOR PT.
[2019-10-04] VITALS (7 sets, daily range): BP systolic 117–151; BP diastolic 71–96
[2019-10-04] MEDS ORDERED: POTASSIUM CL. PREMIX PERIPHER. 250 ML ONE (00:14)
[2019-10-04] MEDS: POTASSIUM CHLORIDE 10 MEQ/50 ML PREMIXED IVPB FOR PERIPHERAL LINE IV SCH ×3 (01:07→03:52)
[2019-10-04 06:34] LABS: ALBUMIN 2.5 g/dL (3.4-5.0); BILIRUBIN,DIRECT 2.6 mg/dL (0.0-0.2); BILIRUBIN,TOTAL 3.7 mg/dL (0.2-1.0); CREATININE 0.8 mg/dL (0.6-1.3); MAGNESIUM 1.9 mg/dL (1.8-2.4); PHOSPHORUS 3.8 mg/dL (2.5-4.9); POTASSIUM 3.4 mmol/L (3.5-5.1); TOTAL PROTEIN, SERUM 6.3 g/dL (6.4-8.2)
[2019-10-04 06:39] LABS: BASOPHILS # (AUTO) 0.1 /CMM (0.0-0.2); BASOPHILS % (AUTO) 0.3 % (0.0-2.0); EOSINOPHILS % (AUTO) 0.6 % (0.0-6.0); HEMATOCRIT 38 % (33-45); HEMOGLOBIN 12.6 g/dL (11.5-14.8); LYMPHOCYTES # (AUTO) 2.4 /CMM (0.8-4.8); LYMPHOCYTES % (AUTO) 8.1 % (20.0-44.0); MEAN CORPUSCULAR HGB CONC 33 g/dl (31.0-36.0); MEAN CORPUSCULAR VOLUME 97 fL (82-100); MONOCYTES # (AUTO) 3.5 /CMM (0.1-1.30); MONOCYTES % (AUTO) 11.8 % (2.0-12.0); NEUTROPHILS # (AUTO) 23.5 /CMM (1.8-8.9); NEUTROPHILS % (AUTO) 79.2 % (43.0-81.0); PLATELET COUNT (AUTO) 302 /CMM (150-450); RED BLOOD CELL COUNT(AUTO) 3.97 MIL/uL (4.0-5.2); WHITE BLOOD COUNT (AUTO) 29.7 K/uL (4.3-11.0)
--- NOTE | 2019-10-04 06:53 | NUR ---
RN CLOSING NOTE PT AWAKE IN BED, A/O X 4 AMBULATORY, DENIES ANY PAIN AT THIS TIME, PT ON RA SATURATING AT 98%, IV TO LT AC PATENT, INTACT, FLUSHING WELL. NS INFUSING AT 100 ML/HR LAST BAG OF POTASSIUM INFUSING. PT AWARE IS NPO PER MD ORDERS. BED LOCKED AND IN LOWEST POSITION, SIDE RAILS UP X 2, CALL LIGHT WITHIN REACH. ENDORSED TO AM RN FOR NEVAEH.
[2019-10-04] MEDS ORDERED: PIPERACILLIN /TAZOBACTAM 3.375 G in IV D5W 50 ML IV ONE (08:00)
[2019-10-04] MEDS: PANTOPRAZOLE 40 MG VIAL IV SCH (09:56)
--- NOTE | 2019-10-04 12:54 | NUR ---
spoke to Dr.Gholami Rocha stated its ok to start the patient on Clear liquids and Keep NPO after midnight for MRCP
[2019-10-04] MEDS: PIPERACILLIN /TAZOBACTAM 3.375 G in IV D5W 100 ML IV SCH ×2 (13:49→20:15)
[2019-10-04] MEDS: POTASSIUM CL. PREMIX PERIPHER. 50 ML IV SCH ×2 (16:04→17:31)
[2019-10-04] MEDS: ACETAMINOPHEN 325 MG TABLET PO PRN (16:27)
--- NOTE | 2019-10-04 18:40 | NUR ---
patient in bed, not in acute dsitress. Alert and orientedX4, ambulatory.IV intact.Denies any pain or discomfort. patient assisted to the bathroom to void. Dinner taken with good appetite. All needs attended. Safety measures intact. Will endorse to maintenance technician 2nd shift RN
--- NOTE | 2019-10-04 19:28 | NUR ---
RN OPENING NOTES PATIENT RECEIVED RESTING IN BED COMFORTABLY; A/OX4, BREATHING EVEN AND UNLABORED; NO SOB NOTED; PATIENT TOLERATING ROOM AIR WELL; PATIENT ABLE TO MAKE NEEDS KNOWN; PER AM SHIFT, PATIENT CLD BUT WILL BE NPO AFTER MIDNIGHT; 20 LAC INTACT AND PATENT; FLUSHING WELL; INFUSING NS @ 100 ML/HR; TOLERATING IVF WELL; SAFETY PRECAUTIONS IMPLEMENTED; BED LOCKED IN LOW POSITION; SIDE RAILS X2; CALL LIGHT WITHIN REACH; WILL CONT TO MONITOR
[2019-10-05] MEDS: ACETAMINOPHEN 325 MG TABLET PO PRN (00:35)
--- NOTE | 2019-10-05 00:41 | NUR ---
RN NOTES PATIENT REQUESTED TYLENOL FOR MILD HEADACHE; TYLENOL ADMINISTERED WITH SMALL AMOUNT OF WATER; PATIENT REPORTED SHE WILL TRY TO GO BACK TO SLEEP; WILL CONT TO MONITOR
[2019-10-05 04:00] VITALS: BP 155/92
[2019-10-05] MEDS: IV NS 0.9% 1,000 ML IV PRN (04:18)
[2019-10-05] MEDS: PIPERACILLIN /TAZOBACTAM 3.375 G in IV D5W 100 ML IV SCH ×3 (04:18→20:17)
--- NOTE | 2019-10-05 05:00 | NUR ---
RN NOTES SPOKE WITH STAVE BOLT EQUALIZER REGARDING PATIENT'S COVID 19 RESULTS, PATIENT IS COVID NEGATIVE; CHARGE NURSE AWARE AND WILL INFORM DR. JACKSON; WILL CONT TO MONITOR
--- NOTE | 2019-10-05 05:33 | NUR ---
RN NOTES DR. JACKSON AWARE OF PATIENT COVID RESULT; PATIENT IS NEGATIVE, NURSING RAILROAD DINING CAR STEWARDESS ALSO AWARE; PER DR. JACKSON, OK TO TRANSFER PATIENT TO 3W, WILL INFORM ONCOMING SHIFT
--- NOTE | 2019-10-05 06:34 | NUR ---
RN CLOSING NOTES PATIENT RESTING IN BED COMFORTABLY, A/OX4; AMBULATORY AND ABLE TO MAKE NEEDS KNOWN; NPO STATUS MAINTAINED; COVID RESULTS ARE NEGATIVE; CHARGE NURSE, NURSING SUPERVISOR FACEPIECE LINE AND DR. JACKSON ALL AWARE, PATIENT WILL BE TRANSFERRED THIS AM TO ROOM 316-1, WILL INFORM ONCOMING SHIFT; L AC #20, INTACT AND PATENT; INFUSING NS @ 100ML/HR; TOLERATING IVF WELL; ALL NEEDS RENDERED; BED LOCKED IN LOW POSITION; SIDE RAILS X2; CALL LIGHT WITHIN REACH; WILL ENDORSE NEVAEH TO ONCOMING SHIFT
[2019-10-05 08:00] VITALS: BP 162/102
--- NOTE | 2019-10-05 08:25 | NUR ---
MS RN NOTES TRANSFERRED PATIENT BY MARINA MANAGER AND RN VIA WHEELCHAIR. PT A/OX4. NO ISOLATION. ALL MEDS AND BELONGINGS RETURNED TO PT.
--- NOTE | 2019-10-05 08:30 | NUR ---
Patient transferred from [facility], received report by KNANAN/RN. Patient AO x 4, able to responds all stimuli. Keep NPO status for possibly cholecystectomy. Does no c/o abd pain, discomfort or nausea/vomit, skin is warm to touch, clean/dry, intact IV site on left AC 20g, running IVF NS at 100 ml. Respiratory even and unlabored with room air. Kept bed in lock with low position and elevated HOB for secure airway, call light within reach, will continue to monitor.
[2019-10-05] MEDS: PANTOPRAZOLE 40 MG VIAL IV SCH (09:00)
--- NOTE | 2019-10-05 11:21 | NUR ---
MS RN NOTES RECEIVED PATIENT FROM ICU BY SAMUEL GRAYSON. DNR DNI, FAMILY AGREED WITH COMFORT MEASURE. VITALS WNL. A/OX0 . HAS RIGHT AND LEFT HAND PERIPHERAL LINE AND RIGHT JV. ALL LINES PATENT AND FLUSHED DWELL WITH NS WELL. BED AT THE LOWEST POSITION LOCKED, CALL LIGHT WITHIN REACH. WILL CONTINUE TO MONITOR PATIENT.
[2019-10-05 16:00] VITALS: BP 161/93
--- NOTE | 2019-10-05 18:30 | NUR ---
MS/RN Closing note Patient in bed comfortably, does no c/o pain or discomfort, no nauseate or vomit. Respiratory even and unlabored with room air, skin is warm to touch, intact new IV site, sa. Kept bed in lock with low position and elevated HOB for secure airway and aspiration precaution. Will continue to monitor for safety and endorse shift supervisor melting
--- NOTE | 2019-10-05 19:30 | NUR ---
MS RN OPENING NOTE RECEIVED PATINE IN BED. A/O X4. TOLERATING ROOM AIR. RESPIRATIONS ARE EVEN AND UNLABORED. NO S/S SOB NOTED. NO C/O PAIN AT THIS TIME. IN NO APPARENT DISTRESS. IV ACCESS IN LEFT HAND #22 RUNNING NS@75ML/HR. BED IS LOW AND LOCKED, HOB ELEVATED IN SEMI FOWLERS, SIDE RIALS UP X2, CALL LIGHT WITHIN REACH. WILL CONTINUE TO MONITOR.
[2019-10-05 20:00] VITALS: BP 150/91
[2019-10-05 20:36] VITALS: BP 150/91
[2019-10-06] MEDS: IV NS 0.9% 1,000 ML IV PRN (05:36)
[2019-10-06] MEDS: PIPERACILLIN /TAZOBACTAM 3.375 G in IV D5W 100 ML IV SCH ×3 (05:36→20:28)
--- NOTE | 2019-10-06 06:57 | NUR ---
MS RN CLOSING NOTE PATINE IN BED. A/O X4. TOLERATING ROOM AIR. RESPIRATIONS ARE EVEN AND UNLABORED. NO SOB NOTED. NO C/O PAIN. NO DISTRESS. IV ACCESS MAINTAINED IN LEFT HAND #22 RUNNING NS@100ML/HR. BED REMAINS LOW AND LOCKED, HOB ELEVATED IN SEMI FOWLERS, SIDE RIALS UP X2, CALL LIGHT WITHIN REACH. WILL ENDORSE TO NEXT SHIFT
[2019-10-06 07:00] VITALS: BP 157/90
--- NOTE | 2019-10-06 07:00 | NUR ---
MS RN OPENING NOTE RECEIVED PATIENT AWAKE IN BED AT THIS TIME. A/O X4. PT ABLE TO MAKE NEEDS KNOWN. NO SOB NOTED. NO C/O PAIN AT THIS TIME. NO S/S OF ANY ACUTE DISTRESS NOTED. RESPIRATIONS ARE EVEN AND UNLABORED. IV ACCESS IN LEFT HAND G#22 RUNNING NS@75ML/HR. SAFETY PRECAUTIONS IN PLACE. BED IS LOWEST LOCKED, HOB ELEVATED IN SEMI FOWLERS POSITION, SIDE RIALS UP X2, CALL LIGHT WITHIN REACH. WILL CONTINUE TO MONITOR.
[2019-10-06 07:33] LABS: BASOPHILS # (AUTO) 0.2 /CMM (0.0-0.2); BASOPHILS % (AUTO) 1.3 % (0.0-2.0); EOSINOPHILS % (AUTO) 3.1 % (0.0-6.0); HEMATOCRIT 39 % (33-45); HEMOGLOBIN 12.9 g/dL (11.5-14.8); LYMPHOCYTES # (AUTO) 2.6 /CMM (0.8-4.8); LYMPHOCYTES % (AUTO) 22.2 % (20.0-44.0); MEAN CORPUSCULAR HGB CONC 33 g/dl (31.0-36.0); MEAN CORPUSCULAR VOLUME 97 fL (82-100); MONOCYTES # (AUTO) 1.6 /CMM (0.1-1.30); MONOCYTES % (AUTO) 13.7 % (2.0-12.0); NEUTROPHILS # (AUTO) 7.1 /CMM (1.8-8.9); NEUTROPHILS % (AUTO) 59.7 % (43.0-81.0); PLATELET COUNT (AUTO) 359 /CMM (150-450); RED BLOOD CELL COUNT(AUTO) 4.01 MIL/uL (4.0-5.2); WHITE BLOOD COUNT (AUTO) 11.9 K/uL (4.3-11.0)
[2019-10-06 07:55] LABS: ALBUMIN 2.7 g/dL (3.4-5.0); BILIRUBIN,TOTAL 0.9 mg/dL (0.2-1.0); CALCIUM, SERUM 8.4 mg/dL (8.5-10.1); CREATININE 0.6 mg/dL (0.6-1.3); MAGNESIUM 1.8 mg/dL (1.8-2.4); PHOSPHORUS 3.2 mg/dL (2.5-4.9); POTASSIUM 3.2 mmol/L (3.5-5.1); TOTAL PROTEIN, SERUM 6.9 g/dL (6.4-8.2)
[2019-10-06] MEDS ORDERED: POTASSIUM CL. PREMIX PERIPHER. 50 ML IV SCH (09:30)
[2019-10-06] MEDS: PANTOPRAZOLE 40 MG VIAL IV SCH (09:31)
--- NOTE | 2019-10-06 11:50 | NUR ---
PT TRANSPORTED BY WHEEL CHAIR OUT OF UNIT AT THIS TIME FOR AN MRCP PROCEDURE. WILL CONTINUE WITH PLAN OF CARE
[2019-10-06] MEDS: Potassium Chloride 10 MEQ, LIDOCAINE HCL/PF 1% 1 ML in IV D5W 50 ML IV SCH ×3 (12:36→19:09)
--- NOTE | 2019-10-06 12:36 | NUR ---
PT BACK IN UNIT FROM MRCP PROCEDURE TRANSPORTED BY WHEEL CHAIR AT THIS TIME WILL CONTINUE WITH PLAN OF CARE AND CONTINUE TO MONITOR
--- NOTE | 2019-10-06 16:20 | NUR ---
PT ON NPO STATUS AND REQUESTING FOR FOOD. DR DORAN AND DR CHRISTIANSEN MADE AWARE OF THE OF PATIENT'S MRI-ABDOMEN RESULTS. DR CHRISTIANSEN ORDERED LOW FAT DIET. ORDERS CARRIED OUT. WILL CONTINUE TO MONITOR
--- NOTE | 2019-10-06 19:00 | NUR ---
MS RN OPENING NOTE PATIENT AWAKE IN BED AT THIS TIME WATCHING TV AND ON COMPUTER. A/O X4. PATIENT REMAINED STABLE THROUGHOUT SHIFT. NO SOB NOTED. NO C/O PAIN AT THIS TIME. NO S/S OF ANY ACUTE DISTRESS NOTED. PATIENT KEPT CLEAN AND DRY. ALL CARE, NEEDS, TREATMENT AND MEDICATIONS ADMINISTERED ANTICIPATED PER ORDER. SAFETY PRECAUTIONS IN PLACE. BED IS LOWEST LOCKED, HOB ELEVATED IN SEMI FOWLERS POSITION, SIDE RIALS UP X2, CALL LIGHT WITHIN REACH. WILL ENDIRSE TO ASIC ENGINEER NURSE FOR NEVAEH Addendum: 10/06/19 at 1930 by CHARMAINE ARCOS RN MS RN CLOSING NOTE PATIENT AWAKE IN BED AT THIS TIME WATCHING TV AND ON COMPUTER. A/O X4. PATIENT REMAINED STABLE THROUGHOUT SHIFT. NO SOB NOTED. NO C/O PAIN AT THIS TIME. NO S/S OF ANY ACUTE DISTRESS NOTED. PATIENT KEPT CLEAN AND DRY. ALL CARE, NEEDS, TREATMENT AND MEDICATIONS ADMINISTERED ANTICIPATED PER ORDER. SAFETY PRECAUTIONS IN PLACE. BED IS LOWEST LOCKED, HOB ELEVATED IN SEMI FOWLERS POSITION, SIDE RIALS UP X2, CALL LIGHT WITHIN REACH. WILL ENDIRSE TO ASIC ENGINEER NURSE FOR NEVAEH
[2019-10-06 20:00] VITALS: BP 154/99
[2019-10-06 20:30] VITALS: BP 154/99
--- NOTE | 2019-10-07 | NUR ---
ms rn note patient is npo. sign placed on door and outside of door. patient is aware and understand npo status. all food and drink is removed from bedside table. will continue to monitor.
[2019-10-07] MEDS: PIPERACILLIN /TAZOBACTAM 3.375 G in IV D5W 100 ML IV SCH ×3 (04:39→20:40)
[2019-10-07 06:27] LABS: BASOPHILS # (AUTO) 0.1 /CMM (0.0-0.2); BASOPHILS % (AUTO) 1.1 % (0.0-2.0); EOSINOPHILS % (AUTO) 3.1 % (0.0-6.0); HEMATOCRIT 41 % (33-45); HEMOGLOBIN 13.6 g/dL (11.5-14.8); LYMPHOCYTES # (AUTO) 2.5 /CMM (0.8-4.8); LYMPHOCYTES % (AUTO) 23.6 % (20.0-44.0); MEAN CORPUSCULAR HGB CONC 34 g/dl (31.0-36.0); MEAN CORPUSCULAR VOLUME 96 fL (82-100); MONOCYTES # (AUTO) 1.3 /CMM (0.1-1.30); MONOCYTES % (AUTO) 12.7 % (2.0-12.0); NEUTROPHILS # (AUTO) 6.3 /CMM (1.8-8.9); NEUTROPHILS % (AUTO) 59.5 % (43.0-81.0); PLATELET COUNT (AUTO) 398 /CMM (150-450); RED BLOOD CELL COUNT(AUTO) 4.22 MIL/uL (4.0-5.2); WHITE BLOOD COUNT (AUTO) 10.5 K/uL (4.3-11.0)
[2019-10-07 06:49] LABS: ALBUMIN 2.7 g/dL (3.4-5.0); BILIRUBIN,DIRECT 0.3 mg/dL (0.0-0.2); BILIRUBIN,TOTAL 0.8 mg/dL (0.2-1.0); CALCIUM, SERUM 8.5 mg/dL (8.5-10.1); CREATININE 0.7 mg/dL (0.6-1.3); MAGNESIUM 1.9 mg/dL (1.8-2.4); PHOSPHORUS 3.3 mg/dL (2.5-4.9); POTASSIUM 3.3 mmol/L (3.5-5.1)
--- NOTE | 2019-10-07 06:55 | NUR ---
MS RN CLOSING NOTE PATIENT IN BED. A/O X4. TOLERATING ROOM AIR. RESPIRATIONS ARE EVEN AND UNLABORED. NO SOB NOTED. NO C/O PAIN. NO DISTRESS. IV ACCESS MAINTAINED IN LEFT HAND #22 RUNNING NS@75ML/HR. BED REMAINS LOW AND LOCKED, HOB ELEVATED IN SEMI FOWLERS, SIDE RIALS UP X2, CALL LIGHT WITHIN REACH. WILL ENDORSE TO NEXT SHIFT.
--- NOTE | 2019-10-07 08:00 | NUR ---
MS RN OPENING NOTE RECEIVED PATINE IN BED. AWAKE ALERT AND ORIENTED X4. NO CARDIAC OR RESPIRATORY DISTRESS NOTED. NO SOB NOTED. SATURATING WELL ON ROOM AIR. RESPIRATIONS ARE EVEN AND UNLABORED. NO C/O PAIN OR DISCOMFORT AT THIS TIME. PER ENDORSEMENT FROM LOCKER ROOM MANAGER, PT WAS KEPT NPO SINCE LAST NIGHT DUE TO A PENDING ERCP PROCEDURE TODAY. KEPT PT NPO, PT IS AWARE. IV ACCESS NOTED ON THE LEFT HAND G#22 WITH NS RUNNING @75ML/HR. SAFETY PRECAUTIONS IN PLACE. BED IS LOW AND LOCKED, HOB ELEVATED IN SEMI FOWLERS, SIDE RIALS UP X2, CALL LIGHT WITHIN REACH. WILL CONTINUE TO MONITOR.
[2019-10-07] MEDS: PANTOPRAZOLE 40 MG VIAL IV SCH (08:49)
--- NOTE | 2019-10-07 10:00 | NUR ---
F/U WITH SURGERY CALLED SURGERY DEPT TO FOLLOW UP WHAT TIME PTS ERCP PROCEDURE WILL BE. PER SURGERY NO SCHEDULE FROM DR. HOPPER YET. DR. HOPPER IS THE GI ON-CALL.
[2019-10-07] MEDS: POTASSIUM CL. PREMIX PERIPHER. 50 ML IV SCH ×3 (11:57→12:57)
--- NOTE | 2019-10-07 12:00 | NUR ---
F/U WITH SURGERY CALLED SURGERY DEPT AGAIN TO FOLLOW UP WHAT TIME PTS ERCP PROCEDURE WILL BE. SINCE NOBODY HAS CALLED ME ABOUT IT YET. PER SURGERY STAFF, NO SCHEDULE FROM DR. HOPPER YET. DR. HOPPER IS THE GI ON-CALL. WILL CALL AND F/U WITH DR. HOPPER
--- NOTE | 2019-10-07 12:15 | NUR ---
F/U WITH DR. HOPPER CALLED AND PAGE DR. HOPPER TO ASK WHAT TIME HE WILL BE PERFORMING THE ERCP PROCEDURE. PER MD, HE DOES NOT KNOW OF THIS PT AND THAT NOBODY HAD INFORMED HIM OF AN ERCP TO BE DONE FOR THIS PT. INFORMED MD THAT PT HAS BEEN NPO SINCE LAST NIGHT AT MIDNIGHT. DR. HOPPER STATED TO F/U WITH THE HOSPITALIST. WILL CONTINUE TO FOLLOW UP AND INVESTIGATE.
--- NOTE | 2019-10-07 12:30 | NUR ---
F/U WITH [facility] (SURGERY) CALLED [facility] FOR SURGERY TO ASK AND CONFIRM IF THEY WILL BE PERFORMING THE LAPAROSCOPIC CHOLECYSTECTOMY TOMORROW PLANNED. ACCORDING TO HER, THIS WILL DEPEND ON WHETHER THE ERCP WILL BE DONE BY THE GI OR NOT. SO THEN I INFORMED [facility] JOSEPH THAT DR. HOPPER WAS NOT AWARE THAT AN ERCP NEEDS TO BE DONE ON THIS PT AND THAT NOBODY HAD INFORMED HIM. PER [facility] TO CONTACT DR. SPENCE, SINCE HE WAS THE GI WHO HAD CONSULTED FOR THIS PT A FEW DAYS AGO. I ALSO NOTED THAT DR. SPENCE WAS ALSO THE MD THAT HAD ORDERED FOR THE ERCP. PER KVNG JOSEPH, TP GO AHEAD NAD TRY TO CONTACT GI AND THEY WILL BASE THEIR DECISION TO DO THE LAP-OLYA BASED ON WHETHER THE ERCP IS DONE OR NOT.
--- NOTE | 2019-10-07 12:45 | NUR ---
F/U WITH DR. SPENCE CALLED DR. SPENCE REGARDING ERCP PLANNED FOR TODAY. PER DR. SPENCE TO CHECK WITH DR. HOPPER BECAUSE HE IS OUT OF TOWN AND THAT HE IS NOT PUBLIC INTERVIEWER TODAY. WILL FOLLOW UP WITH WARD AND WILL NOTIFY DR. SWEENEY TO POSSIBLY TRY CLARIFYING WITH DR. HOPPER (GI PUBLIC INTERVIEWER) IF ERCP STILL NEEDS TO BE DONE.
--- NOTE | 2019-10-07 13:30 | NUR ---
F/U WITH DR. SWEENEY CALLED AND NOTIFIED DR. SWEENEY REGARDING THE CURRENT SITUATION WITH THE GI DOCTORS AND PENDING ERCP. PER DR. SWEENEY, SHE WILL CALL AND TALK TO DR. HOPPER. ALSO NOTIFIED DR. SWEENEY OF PTS MRCP RESULTS, AND CURRENT LFT AND LIPASE LEVELS.
--- NOTE | 2019-10-07 14:00 | NUR ---
DR. SWEENEY/WARD ORDERS BOTH DR. SWEENEY AND WARD INFORMED ME THAT ERCP IS NOT NEEDED AT THIS TIME AND TO D/C THAT PRECODURE. PT WAS PLACED BACK ON A REGULAR DIET, THEN WILL BE KEPT NPO AFTER MIDNIGHT TONIGHT IN PREPARATION FOR TOMORROWS LAP-OLYA PROCEDURE. PT MADE AWARE OF CURRENT TX PLANS.
[2019-10-07] MEDS: Potassium Chloride 10 MEQ, LIDOCAINE HCL/PF 1% 1 ML in IV D5W 50 ML IV SCH ×2 (15:19→17:28)
[2019-10-07] MEDS: IV NS 0.9% 1,000 ML IV PRN (15:35)
[2019-10-07 17:55] VITALS: BP 143/92
--- NOTE | 2019-10-07 18:30 | NUR ---
SEEN BY KVNG JOSEPH PT WAS SEEN BY KVNG JOSEPH. PT WAS INFORMED OF PROCEDURE TOMORROW. PT AGREEABLE. KVNG ALSO ORDERED LABS: CBC, CMP, PT, PTT, INR AND BLOOD TYPE AND SCREEN. NOTED AND CARRIED OUT.
--- NOTE | 2019-10-07 19:00 | NUR ---
MS RN CLOSING NOTES PATIENT IN BED. AWAKE ALERT AND ORIENTED X4. NO CARDIAC OR RESPIRATORY DISTRESS NOTED. NO SOB NOTED. SATURATING WELL ON ROOM AIR. RESPIRATIONS ARE EVEN AND UNLABORED. NO C/O PAIN OR DISCOMFORT AT THIS TIME. PT IS AWARE THAT SHE NEED TO BE NPO AFTER MIDNIGHT TONIGHT FOR TOMORROWS PROCEDURE LAP-OLYA. T IV ACCESS NOTED ON THE LEFT HAND G#22 WITH NS RUNNING @75ML/HR. SAFETY PRECAUTIONS IN PLACE. BED IS LOW AND LOCKED, HOB ELEVATED IN SEMI FOWLERS, SIDE RIALS UP X2, CALL LIGHT WITHIN REACH. WILL CONTINUE TO MONITOR.
--- NOTE | 2019-10-07 19:20 | NUR ---
RN OPENING NOTES Received patient awake on bed, A/O x4, no complaints made at this time. Reminded patient to be on NPO after midnight for a scheduled procedure tomorrow, patient verbalized understanding. Kept on bed clean, dry and comfortable. Call light within easy reach. Will continue to monitor accordingly.
[2019-10-07 20:00] VITALS: BP 157/105
[2019-10-08] MEDS: PIPERACILLIN /TAZOBACTAM 3.375 G in IV D5W 100 ML IV SCH ×3 (04:05→21:24)
--- NOTE | 2019-10-08 06:31 | NUR ---
RN CLOSING NOTES Patient asleep, easily awaken. On RA, afebrile the whole shift. No new complaints made. Kept on NPO since midnight. All nursing needs attended, due meds given as ordered. For laparoscopic cholecystectomy today. Call light within easy reach. Endorsed.
[2019-10-08 07:39] LABS: ALBUMIN 2.9 g/dL (3.4-5.0); BASOPHILS # (AUTO) 0.1 /CMM (0.0-0.2); BASOPHILS % (AUTO) 1.1 % (0.0-2.0); BILIRUBIN,TOTAL 0.8 mg/dL (0.2-1.0); CALCIUM, SERUM 8.8 mg/dL (8.5-10.1); CREATININE 0.8 mg/dL (0.6-1.3); EOSINOPHILS % (AUTO) 3.1 % (0.0-6.0); HEMATOCRIT 42 % (33-45); HEMOGLOBIN 14.1 g/dL (11.5-14.8); LYMPHOCYTES # (AUTO) 2.8 /CMM (0.8-4.8); LYMPHOCYTES % (AUTO) 27.4 % (20.0-44.0); MEAN CORPUSCULAR HGB CONC 33 g/dl (31.0-36.0); MEAN CORPUSCULAR VOLUME 96 fL (82-100); MONOCYTES # (AUTO) 1.3 /CMM (0.1-1.30); MONOCYTES % (AUTO) 12.4 % (2.0-12.0); NEUTROPHILS # (AUTO) 5.7 /CMM (1.8-8.9); PHOSPHORUS 3.5 mg/dL (2.5-4.9); PLATELET COUNT (AUTO) 410 /CMM (150-450); POTASSIUM 3.3 mmol/L (3.5-5.1); RED BLOOD CELL COUNT(AUTO) 4.37 MIL/uL (4.0-5.2); TOTAL PROTEIN, SERUM 7.2 g/dL (6.4-8.2); WHITE BLOOD COUNT (AUTO) 10.2 K/uL (4.3-11.0)
[2019-10-08 08:00] VITALS: BP 148/69
--- NOTE | 2019-10-08 08:00 | NUR ---
MS RN OPENING NOTES RECEIVED PATIENT IN BED. AWAKE ALERT AND ORIENTED X4. NO CARDIAC OR RESPIRATORY DISTRESS NOTED. NO SOB NOTED. SATURATING WELL ON ROOM AIR. RESPIRATIONS ARE EVEN AND UNLABORED. NO C/O PAIN OR DISCOMFORT AT THIS TIME. KEPT PT NPO FOR PENDING LAP OLYA PROCEDURE TODAY. IV ACCESS NOTED ON THE LEFT HAND G#22 WITH NS RUNNING @75ML/HR. SAFETY PRECAUTIONS IN PLACE. BED IS LOW AND LOCKED, HOB ELEVATED IN SEMI FOWLERS, SIDE RIALS UP X2, CALL LIGHT WITHIN REACH. WILL CONTINUE TO MONITOR.
[2019-10-08] MEDS: PANTOPRAZOLE 40 MG VIAL IV SCH (08:54)
--- NOTE | 2019-10-08 09:50 | NUR ---
LEFT FOR SURGERY PT LEFT UNIT FOR LAP-OLYA PROCEDURE. CONSENTS SIGNED AND CHECKLIST DONE AND COMPLETED. PT LEFT IN STABLE CONDITION.
[2019-10-08] MEDS ORDERED: BUPIVACAINE MPF 0.5% W/EPI INJ 30 ML VIAL ONE (09:53)
[2019-10-08] MEDS ORDERED: ANESTHESIA TRAY IN PYXIS 1 EA TRAY MC ONE (09:53)
[2019-10-08] MEDS ORDERED: LIDOCAINE 1% INJ 50 ML MDV IJ ONE (09:54)
[2019-10-08] MEDS ORDERED: POTASSIUM CL. PREMIX PERIPHER. 50 ML IV SCH (10:00)
--- NOTE | 2019-10-08 10:00 | NUR ---
K+ REPLACEMENT MD WAS NOTIFIED REGARDING K+ LEVEL OF 3.3. RECEIVED NEW ORDERS FOR KCL 10MEQ WITH LIDOCAINE VIA IV.
[2019-10-08] MEDS ORDERED: FENTANYL PF 100MCG/2ML AMPUL ONE ×2 (10:13)
[2019-10-08] MEDS ORDERED: PROPOFOL 20 ML IV ONE (10:13)
[2019-10-08] MEDS ORDERED: hydrALAZINE HCL IV 20 MG VIAL ONE (11:04)
[2019-10-08] MEDS ORDERED: Potassium Chloride 10 MEQ, LIDOCAINE HCL/PF 1% 1 ML in IV D5W 50 ML IV SCH (11:30)
[2019-10-08] MEDS ORDERED: CELLULOSE,OXIDIZED 1 EA PACK MC ONE (11:31)
[2019-10-08] MEDS ORDERED: BACITRACIN ZINC OINT PACKET 1 EA PACKET TP ONE (11:48)
[2019-10-08] MEDS ORDERED: HYDROCODONE/APAP 10/325MG 1 EA TABLET PO PRN (13:00)
--- NOTE | 2019-10-08 13:00 | NUR ---
BACK FROM SURGERY PT CAME BACK FROM SURGERY S/P LAPAROSCOPIC CHLECYSTECTOMY WITH GENERAL ANESTHESIA BGY DR. CHRISTIANSEN. VS CHECKED NOTED AT T- 97.5, P-71, R-18, BP-106/58, O2 SAT-98% ON 2L. NO CARDIAC OR RESPIRATORY DISTRESS NOTED. REVIEWED POST-OP ORDERS BY , ORDERED FOR PT TO START WITH A FULL LIQUID DIET FOR DINNER TONIGHT, OKAY TO GIVE CLEAR LIQUIDS STARTING NOW. ALSO ORDERED PRN NORCO AND PRN DILAUDID FOR PAIN MANAGEMENT.
[2019-10-08] MEDS: HYDROMORPHONE 1 MG/1 ML DISP.SYRIN IV PRN ×2 (13:15→16:24)
[2019-10-08 16:00] VITALS: BP 136/74
[2019-10-08] MEDS: IV NS 0.9% 1,000 ML IV PRN (16:21)
--- NOTE | 2019-10-08 18:52 | NUR ---
MS RN CLOSING NOTES PATIENT IN BED. AWAKE ALERT AND ORIENTED X4. NO CARDIAC OR RESPIRATORY DISTRESS NOTED. NO SOB NOTED. SATURATING WELL ON ROOM AIR. RESPIRATIONS ARE EVEN AND UNLABORED. NO C/O PAIN OR DISCOMFORT AT THIS TIME. PT IS S/P LAP-OLYA PROCEDURE DONE TODAY. NO BLEEDING NOTED ON SURGICAL SITE. DRESSING IS CLEAN AND INTACT. IV ACCESS NOTED ON THE LEFT HAND G#22 WITH NS RUNNING @75ML/HR. SAFETY PRECAUTIONS IN PLACE. BED IS LOW AND LOCKED, HOB ELEVATED IN SEMI FOWLERS, SIDE RIALS UP X2, CALL LIGHT WITHIN REACH. WILL CONTINUE TO MONITOR.
--- NOTE | 2019-10-08 19:05 | NUR ---
RN CLOSING NOTES Received patient awake on bed, on RA. Patient claimed having minimal pain, refused any pain meds at this time. On fall precautions. Will continue to monitor accordingly. Addendum: 10/09/19 at 0531 by KONRAD SHEPHERD RN RN OPENING NOTES
--- NOTE | 2019-10-08 19:06 | NUR ---
RN OPENING NOTES Received patient awake on bed, on RA. Patient claimed having minimal pain, refused any pain meds at this time. On fall precautions. Will continue to monitor accordingly.
[2019-10-08 20:00] VITALS: BP 132/58
[2019-10-09] MEDS: HYDROMORPHONE 1 MG/1 ML DISP.SYRIN IV PRN (00:01)
--- NOTE | 2019-10-09 03:30 | NUR ---
RN NOTES Report given to RENUKA Miller for transfer of care.
--- NOTE | 2019-10-09 03:35 | NUR ---
RN NOTES Received pt. from another RN Yohan, pt. is sleepign but arousable, dressing on the abdomen dry and intact, not in distress, no pain nted, call light woithin reach, siderailsupx2, continue to monitor
[2019-10-09] MEDS: PIPERACILLIN /TAZOBACTAM 3.375 G in IV D5W 100 ML IV SCH ×3 (04:36→21:31)
--- NOTE | 2019-10-09 05:50 | NUR ---
RN NOTES COMPLAINED OF FEELING NAUSEOUS- ZOFRAN 4 MG IV GIVEN ORDERED
--- NOTE | 2019-10-09 06:17 | NUR ---
RN NOTES AWAKE. DENIES PAIN, NO SOB,MORNING CARE RENDERED, CALL LIGHT WITHIN REACH, [id number], PT. NEEDS ATTENDED
[2019-10-09 06:20] LABS: BASOPHILS # (AUTO) 0.1 /CMM (0.0-0.2); BASOPHILS % (AUTO) 0.3 % (0.0-2.0); EOSINOPHILS % (AUTO) 0.2 % (0.0-6.0); HEMATOCRIT 38 % (33-45); HEMOGLOBIN 12.9 g/dL (11.5-14.8); LYMPHOCYTES # (AUTO) 2.8 /CMM (0.8-4.8); LYMPHOCYTES % (AUTO) 13.5 % (20.0-44.0); MEAN CORPUSCULAR HGB CONC 34 g/dl (31.0-36.0); MEAN CORPUSCULAR VOLUME 97 fL (82-100); MONOCYTES # (AUTO) 1.9 /CMM (0.1-1.30); MONOCYTES % (AUTO) 9.2 % (2.0-12.0); NEUTROPHILS # (AUTO) 16.2 /CMM (1.8-8.9); NEUTROPHILS % (AUTO) 76.8 % (43.0-81.0); PLATELET COUNT (AUTO) 414 /CMM (150-450); RED BLOOD CELL COUNT(AUTO) 3.93 MIL/uL (4.0-5.2)
[2019-10-09 06:53] LABS: CALCIUM, SERUM 8.5 mg/dL (8.5-10.1); CREATININE 0.8 mg/dL (0.6-1.3); MAGNESIUM 1.8 mg/dL (1.8-2.4); PHOSPHORUS 3.6 mg/dL (2.5-4.9); POTASSIUM 3.3 mmol/L (3.5-5.1)
[2019-10-09 08:00] VITALS: BP 132/75
--- NOTE | 2019-10-09 08:00 | NUR ---
RN NOTES AWAKE,ALERT,ORIENTED X 4. DENIES PAIN, NO SOB,MORNING CARE RENDERED, CALL LIGHT WITHIN REACH, [id number], PT. NEEDS ATTENDED
[2019-10-09] MEDS: PANTOPRAZOLE 40 MG VIAL IV SCH (08:57)
[2019-10-09] MEDS ORDERED: POTASSIUM CL. PREMIX PERIPHER. 50 ML IV SCH (11:32)
[2019-10-09] MEDS ORDERED: POTASSIUM CHLORIDE 20 MEQ TAB.PRT.SR PO SCH (12:30)
--- NOTE | 2019-10-09 12:30 | NUR ---
PT REFUSED [facility] NOTIFIED [facility]CL PO GIVEN ORDER
[2019-10-09 16:00] VITALS: BP 185/95
[2019-10-09 18:00] VITALS: BP 158/95
--- NOTE | 2019-10-09 19:30 | NUR ---
MS RN NOTES PATIENT IN BED RESTING NO SOB OR ACUTE DISTRESS NOTED. ALL DUE MEDICATIONS ADMINISTERED. ALL NEEDS MET. NO ACUTE CHANGES NOTED DURING AM SHIFT. ENDORSED CARE TO PM SHIFT.
[2019-10-09 20:00] VITALS: BP 156/82
--- NOTE | 2019-10-09 20:25 | NUR ---
MS/TELE/RN AT 1930, PATIENT WAS ON BED AWAKE, ALERT, ORIENTED, COMFORTABLE, NO C/O PAIN, NO DISTRESS NOTED, CALL LIGHT IN REACH. WILL MONITOR.
--- NOTE | 2019-10-10 01:41 | NUR ---
MS/TELE/RN PATIENT APPEAR SLEEPING, APPEAR COMFORTABLE, NO SIGNS OF DISTRESS NOTED, CALL LIGHT IN REACH, WILL CONTINUE TO MONITOR.
[2019-10-10] MEDS: PIPERACILLIN /TAZOBACTAM 3.375 G in IV D5W 100 ML IV SCH ×2 (05:10→13:21)
--- NOTE | 2019-10-10 06:12 | NUR ---
MS/TELE/RN PATIENT APPEAR SLEEPING AT THIS TIME, APPEAR COMFORTABLE, NO SIGNS OF DISTRESS NOTED, CALL LIGHT IN REACH, ALL NEEDS ATTENDED AT THIS TIME, WILL CONTINUE TO MONITOR.
--- NOTE | 2019-10-10 07:30 | NUR ---
MS/RN OPENING NOTES RECEIVED PATIENT AWAKE IN BED, ALERT AND ORIENTED X 4. PATIENT DENIES PAIN, NO SOB AND NO SIGNS OF DISTRESS NOTED. IV ACCESS ON LEFT HAND INTACT AND RUNNING NS AT 75 ML/HR. SAFETY MEASURES ARE IN PLACE, CALL LIGHT WITHIN REACH, SIDE RAILS UP X 2, BED IS LOCK AND IN LOW POSITION. WILL CONTINUE TO MONITOR PATIENT ACCORDINGLY THOUGHT OUT SHIFT.
[2019-10-10 08:00] VITALS: BP 160/88
[2019-10-10 08:07] LABS: BASOPHILS # (AUTO) 0.1 /CMM (0.0-0.2); BASOPHILS % (AUTO) 0.7 % (0.0-2.0); EOSINOPHILS % (AUTO) 2.1 % (0.0-6.0); HEMATOCRIT 38 % (33-45); HEMOGLOBIN 12.5 g/dL (11.5-14.8); LYMPHOCYTES # (AUTO) 2.8 /CMM (0.8-4.8); LYMPHOCYTES % (AUTO) 16.2 % (20.0-44.0); MEAN CORPUSCULAR HGB CONC 33 g/dl (31.0-36.0); MEAN CORPUSCULAR VOLUME 97 fL (82-100); MONOCYTES % (AUTO) 11.3 % (2.0-12.0); NEUTROPHILS # (AUTO) 12.2 /CMM (1.8-8.9); NEUTROPHILS % (AUTO) 69.7 % (43.0-81.0); PLATELET COUNT (AUTO) 363 /CMM (150-450); RED BLOOD CELL COUNT(AUTO) 3.96 MIL/uL (4.0-5.2); WHITE BLOOD COUNT (AUTO) 17.5 K/uL (4.3-11.0)
[2019-10-10 08:37] LABS: CALCIUM, SERUM 8.4 mg/dL (8.5-10.1); CREATININE 0.7 mg/dL (0.6-1.3); MAGNESIUM 1.9 mg/dL (1.8-2.4); PHOSPHORUS 3.6 mg/dL (2.5-4.9); POTASSIUM 3.5 mmol/L (3.5-5.1)
[2019-10-10] MEDS: PANTOPRAZOLE 40 MG VIAL IV SCH (09:09)
[2019-10-10 16:00] VITALS: BP 161/86
--- NOTE | 2019-10-10 17:58 | NUR ---
MS/RN CLOSING NOTES PATIENT AWAKE IN BED, ALERT AND ORIENTED X 4. NO SOB AND NO SIGNS OF DISTRESS NOTED. IV ACCESS ON LEFT HAND INTACT AND RUNNING NS AT 75 ML/HR. SAFETY MEASURES ARE IN PLACE, CALL LIGHT WITHIN REACH, SIDE RAILS UP X 2, BED IS LOCK AND IN LOW POSITION. PATIENTS NEEDS HAVE BEEN MET DURING SHIFT. WILL ENDORSE CARE TO TE[employer] LEAF READER.
--- NOTE | 2019-10-10 19:15 | NUR ---
MS RN OPENING NOTES: RECEIVED PATIENT IN BED, AWAKE, A/O X4. NO COMPLAIN OF PAIN. NO SOB NOTED. WITH LAP SITES X4 WITH B[employer] INTACT. NO BLEEDING NOTED.
[2019-10-10 20:00] VITALS: BP 139/74
--- NOTE | 2019-10-10 20:24 | NUR ---
CALL LIGHT WITHIN REACH.
[2019-10-10] MEDS: CEFTRIAXONE 2 G in IV D5W 100 ML IV SCH (21:23)
[2019-10-10] MEDS: IV NS 0.9% 1,000 ML IV PRN (21:24)
--- NOTE | 2019-10-11 06:21 | NUR ---
MS RN CLOSING NOTES: PATIENT SITTING ON THE BED,AWAKE, A/O X4. NO COMPLAIN OF PAIN DURING THE SHIFT. NO SOB NOTED. CALL LIGHT WITHIN REACH. BED IN LOWEST AND LOCKED. RESTED THROUGHOUT THE NIGHT.
--- NOTE | 2019-10-11 07:30 | NUR ---
received pt. in am alert and oriented.bandaids to abd. dry and intact.iv infusing.vs stable.
[2019-10-11 08:00] VITALS: BP 139/74
[2019-10-11 08:17] LABS: BASOPHILS # (AUTO) 0.1 /CMM (0.0-0.2); BASOPHILS % (AUTO) 0.5 % (0.0-2.0); EOSINOPHILS % (AUTO) 2.1 % (0.0-6.0); HEMATOCRIT 37 % (33-45); HEMOGLOBIN 12.4 g/dL (11.5-14.8); LYMPHOCYTES # (AUTO) 2.1 /CMM (0.8-4.8); LYMPHOCYTES % (AUTO) 16.1 % (20.0-44.0); MEAN CORPUSCULAR HGB CONC 33 g/dl (31.0-36.0); MEAN CORPUSCULAR VOLUME 96 fL (82-100); MONOCYTES # (AUTO) 1.8 /CMM (0.1-1.30); MONOCYTES % (AUTO) 13.8 % (2.0-12.0); NEUTROPHILS # (AUTO) 8.9 /CMM (1.8-8.9); NEUTROPHILS % (AUTO) 67.5 % (43.0-81.0); PLATELET COUNT (AUTO) 304 /CMM (150-450); RED BLOOD CELL COUNT(AUTO) 3.88 MIL/uL (4.0-5.2); WHITE BLOOD COUNT (AUTO) 13.1 K/uL (4.3-11.0)
[2019-10-11 08:25] LABS: CALCIUM, SERUM 8.2 mg/dL (8.5-10.1); CREATININE 0.6 mg/dL (0.6-1.3); MAGNESIUM 1.8 mg/dL (1.8-2.4); PHOSPHORUS 3.5 mg/dL (2.5-4.9); POTASSIUM 3.2 mmol/L (3.5-5.1)
[2019-10-11] MEDS: PANTOPRAZOLE 40 MG VIAL IV SCH (09:43)
[2019-10-11] MEDS: POTASSIUM CHLORIDE 20 MEQ TAB.PRT.SR PO SCH ×2 (09:43→11:29)
[2019-10-11] MEDS: IV NS 0.9% 1,000 ML IV PRN (12:09)
[2019-10-11 16:00] VITALS: BP 155/84
[2019-10-11] MEDS ORDERED: CEFT2VIA14 IV (16:15)
--- NOTE | 2019-10-11 16:30 | NUR ---
junior disla and dr. sutton in to see pt. plans for discharge today.
[2019-10-11] MEDS: CEFTRIAXONE 2 G in IV D5W 100 ML IV SCH (18:55)
--- NOTE | 2019-10-11 19:00 | NUR ---
luis beltran,given at this time prior to dc.pt. reading dc papers.hep lock lt. hand removed.just had midline iv inserted lt. upper arm by jonathan verma.
--- NOTE | 2019-10-11 21:00 | NUR ---
MS RN NOTES D/C HOME WITH PRIVATE TRANSPORTATION,IN STABLE CONDITION.LEFT UPPER MIDLINE IN PLACE FOR HOME ANTIBIOTIC USE.VITAL SIGNS WITH IN NORMAL LIMITS.
== END 2019-10-11 21:02 | disposition home or self-care (01) | DRG 853 ==
LOC: ER 18:52 → MEDSG1 22:48 → MED 10-05 08:43
PROVIDERS: ADMIT Internal Medicine; ATTEND Student in an Organized Health Care Education/Training Program
PROC: 0FT44ZZ Resection of Gallbladder, Percutaneous Endoscopic Approach (ICD-10-PCS; principal; 2019-10-08)
PROC: 05H633Z Insertion of Infusion Device into Left Subclavian Vein, Percutaneous Approach (ICD-10-PCS; 2019-10-11)
PROC: B547ZZA Ultrasonography of Left Subclavian Vein, Guidance (ICD-10-PCS; 2019-10-11)
DX: A41.50 Gram-negative sepsis, unspecified (principal); K85.10 Biliary acute pancreatitis without necrosis or infection; K80.10 Calculus of gallbladder with chronic cholecystitis without obstruction; Z90.81 Acquired absence of spleen; I10 Essential (primary) hypertension; K57.30 Diverticulosis of large intestine without perforation or abscess without bleeding; B96.20 Unspecified Escherichia coli [E. coli] as the cause of diseases classified elsewhere; E87.6 Hypokalemia; Z90.710 Acquired absence of both cervix and uterus; E66.9 Obesity, unspecified; Z68.38 Body mass index [BMI] 38.0-38.9, adult; R74.0 Nonspecific elevation of levels of transaminase and lactic acid dehydrogenase [LDH]
CPT/HCPCS: 36415; 71045-TC; 74181-TC; 76705-TC; 80048-TC; 80053-TC; 80076-TC; 81000-TC; 82150-TC; 82550-TC; 82728-TC; 83605-TC; 83615-TC; 83690-TC; 83735-TC; 83880; 84100-TC; 84484-TC; 85025-TC; 85378-TC; 85730-TC; 86140-TC; 86850-TC; 87040-TC; 87081-TC; 87086-TC; 87186-TC; 88304-TC; C9113; G0378; J0330; J0360; J0696; J1170; J1885; J2405; J2543; J2704; J2710; J2765; J3010; J3370; J3480; J3490; J7030; J7050; J7060; Q9967; U0003-CS